=== PATIENT | female | born 1960 | race Caucasian/White ===

== ENCOUNTER 2018-07-04 15:11 | Outpatient (CLI) | payer MEDICARE ==
--- NOTE | 2018-07-04 18:14 | MRI ---
MRI OF RIGHT HIP WITHOUT CONTRAST: 07/04/18 HISTORY: Chronic right hip pain right groin. G89.29 other chronic pain. COMPARISON: None. FINDINGS: BONES: There are bilateral hip arthroplasties which create extensive susceptibility artifact. The right pseu docapsule is markedly distended and had a hemosiderin shell within it. Marked synovitis. Moderate adj acent soft tissue swelling. The distended pseudocapsule measures 6.3 x 0.8 x 9.5 cm (AP x trans x CC) . There is some mild muscle edema within the quadratus femoris as well as the gluteus medius and minimu s muscles on the right. No stress fracture is appreciated. Mild narrowing of the pubic symphysis. Moderate degeneration as expected for age. Intrapelvic soft ti ssues are unremarkable. IMPRESSION: 1. Adverse local tissue reaction around the right hip arthroplasty with a large distended pseudo capsule lined with hemosiderin withextensive synovitis and internal debris. 2. Mild edema within the right quadratus femoris as well as gluteus medius and minimus muscles. 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 POS: [facility]
== END 2018-07-04 15:12 | disposition home or self-care (01) ==
LOC: BICMRI 15:11
PROVIDERS: ATTEND Physician Assistant
DX: M25.551 Pain in right hip (principal); G89.29 Other chronic pain; Z98.890 Other specified postprocedural states

== ENCOUNTER 2020-08-09 10:36 | Outpatient (CLI) | payer MEDICARE ==
--- NOTE | 2020-08-09 12:06 | RAD ---
PA AND LATERAL VIEWS CHEST: Date: 08/09/2020 HISTORY: Wheezing, cough. COMPARISON: 12/29/2014. FINDINGS: The heart size is normal. The aorta is tortuous. The lungs are well expanded without lobar consolidat ion, pneumothoraces, or pleural effusions. There are postop changes and metallic hardware in the lowe r cervical spine. A hiatal hernia is present. IMPRESSION: No acute process. POS: [facility]
== END 2020-08-09 10:37 | disposition home or self-care (01) ==
LOC: BICRAD 10:36
PROVIDERS: ATTEND Internal Medicine
DX: R06.2 Wheezing (principal)
CPT/HCPCS: 71046

== ENCOUNTER 2020-08-11 20:14 | Emergency (ER) | payer MEDICARE ==
[~2020-08-11 20:14] MED LIST: Iopamidol-370 76% 500 ML 1 ML ONE
[2020-08-11] MEDS ORDERED: Lidocaine 1% w/Epinephrine 1:100K 20 ML VIAL ONE (21:19)
[2020-08-11] MEDS ORDERED: Morphine 4 MG/ML VIAL ONE (21:38)
[2020-08-11] MEDS ORDERED: Ondansetron PF 4 MG/2 ML Vial ONE (21:38)
[2020-08-11 21:47] LABS: #Eosinphils 0.1 thou/uL (0.0-0.7); #Monocytes 0.4 thou/uL (0.11-0.59); #Neutrophils 2.8 thou/uL (1.40-6.50); %Eosinophils 1.4 % (0.0-10.0); %Lymphocytes 24.2 % (21.0-51.0); %Monocytes 8.4 % (0.0-10.0); %Neutrophils 65.1 % (42.0-75.0); Hemoglobin 10.2 g/dL (12.0-16.0); Mean Corpuscular HGB CONC 32.9 g/dL (32.0-36.0); Mean Corpuscular Hemoglobin 29.5 pg (27.0-31.0); Mean Corpuscular Volume 89.7 fL (78.0-98.0); Mean Platelet Volume 7.8 fL (7.4-10.4); Platelet Count 103 thou/uL (130-400); Red Blood Cell (RBC) Count 3.45 mill/uL (4.20-5.40); White Blood Cell (WBC) Count 4.3 thou/uL (4.8-10.8)
[2020-08-11 22:10] LABS: ALT (SGPT) 26 U/L (8-55); AST (SGOT) 38 U/L (5-34); Albumin 3.7 g/dL (3.5-5.0); Alkaline Phosphatase 89 U/L (40-110); Anion Gap 15 mmol/L (10-20); BUN (Urea Nitrogen) 17 mg/dL (9.8-20.1); Bilirubin, Total 0.3 mg/dL (0.2-1.2); Calc. Creatinine Clearance 0 mL/min (70-130); Calcium 8.6 mg/dL (7.8-10.44); Carbon Dioxide 24 mmol/L (22-29); Chloride 107 mmol/L (98-107); Estimated GFR-MDRD 63; Globulin 3.1 g/dL (2.4-3.5); Glucose 112 mg/dL (70-105); Lipase 42 U/L (8-78); Potassium 3.8 mmol/L (3.5-5.1); Protein, Total 6.8 g/dL (6.0-8.3); Sodium 142 mmol/L (136-145)
[2020-08-11 22:51] LABS: Troponin I 0.024 ng/mL (< 0.028)
--- NOTE | 2020-08-12 07:49 | CT ---
CT OF THE ABDOMEN AND PELVIS WITH CONTRAST: HISTORY: Epigastric pain after swallowing an earring. TECHNIQUE: Multiple contiguous axial images were obtained in a CT of the abdomen and pelvis with contrast. Sagi ttal and coronal reformats were performed. FINDINGS: There is an earring in the patient's cecum. No distention of small bowel loops is seen. No free air or free fluid are seen in the abdomen or pelvis. There is a moderate hiatal hernia. The liver has a nodular contour consistent with cirrhosis. The gallbladder is absent. Mild enlargem ent of the biliary tree may be reservoir effect from prior cholecystectomy. The right kidney, adrena l glands, spleen, and pancreas are unremarkable. There are subcentimeter hypodensities in both kidn eys that are too small to definitely characterize but likely represent a cyst. Atherosclerotic calcifications are seen in the aorta. The patient has bilateral hip prostheses which produced streak artifact limiting evaluation of the pelvis. No abdominal adenopathy is seen. No ob vious pelvic adenopathy is appreciated. Degenerative changes are seen in the spine. The visualized inferior thorax and abdominal wall soft t issues are unremarkable. IMPRESSION: 1. The swallowed earring is in the cecum without evidence of obstruction or bowel perforation. 2. Renal cysts. 3. Hiatal hernia. 4. Cirrhotic liver. POS: [facility]
== END 2020-08-11 23:40 | disposition home or self-care (01) ==
LOC: ERS 20:14
DX: T18.9XXA Foreign body of alimentary tract, part unspecified, initial encounter (principal); R10.13 Epigastric pain; F17.210 Nicotine dependence, cigarettes, uncomplicated
CPT/HCPCS: 36415; 74177; 80053; 83690; 84484; 85025; 93005; 96374; 96375; J2270; J2405; Q9967

== ENCOUNTER 2020-08-26 16:45 | Outpatient (CLI) | payer MEDICARE ==
[2020-08-27 02:05] LABS: SARS-CoV-2 MS2 Positive; SARS-CoV-2 N Gene Negative; SARS-CoV-2 S Gene Negative; SARS-CoV-2 by NAA Not Detected (NotDetected); SARS-CoV-2 orf1ab Negative
== END 2020-08-26 16:46 | disposition home or self-care (01) ==
LOC: LABBT 16:45
PROVIDERS: ATTEND Internal Medicine Gastroenterology
DX: Z01.812 Encounter for preprocedural laboratory examination (principal); K92.2 Gastrointestinal hemorrhage, unspecified; R10.9 Unspecified abdominal pain; Z20.828 Contact with and (suspected) exposure to other viral communicable diseases
CPT/HCPCS: 87635; U0003

== ENCOUNTER 2024-09-24 16:14 | Inpatient (IN) | payer OTHER, MEDICAID ==
[2024-09-24 16:33] VITALS: BMI 23.1
[2024-09-24] MEDS ORDERED: Calcium Carbonate 500 MG ChewTAB PO PRN (17:50)
[2024-09-24] MEDS ORDERED: Senokot S 8.6-50 MG TAB PO PRN (17:50)
[2024-09-24] MEDS ORDERED: Benzocaine/Menthol 1 LOZ LOZ PO PRN (18:16)
[2024-09-24] MEDS: Sodium Chloride 0.9% 1,000 ML IV SCH (18:19)
[2024-09-24] MEDS: Morphine 2 MG/ML VIAL SLOW IVP PRN (18:19)
[2024-09-24] MEDS: Ondansetron PF 4 MG/2 ML Vial IVP PRN (18:20)
[2024-09-24 18:57] LABS: Troponin I 0.097 ng/mL (< 0.028)
[2024-09-24 20:05] LABS: Influenza A by NAA Not Detected (NotDetected); Influenza B by NAA Not Detected (NotDetected); RSV by NAA Not Detected (NotDetected); SARS-CoV-2 NAA Rapid Test Not Detected (NotDetected)
[2024-09-24] MEDS: Sucralfate 1 GM TAB PO SCH (20:08)
[2024-09-24] MEDS: Metoprolol Tartrate 25 MG TAB PO SCH (20:09)
[2024-09-24] MEDS: Pantoprazole 40 MG VIAL IVP SCH (20:09)
[2024-09-24] MEDS: Zolpidem Tartrate 5 MG TAB PO PRN (23:27)
[2024-09-25 00:27] LABS: Bacteria/HPF 3+ HPF (None Seen); Bilirubin Negative (Negative); Blood, Urine 1+ (Negative); Clarity Extra Turbid (Clear); Glucose, Urine (Dipstick) Normal (Negative); Ketone, Urine Negative (Negative); Leukocyte 500 Leu/uL (Negative); Nitrite Negative (Negative); Protein, Urine (Dipstick) 30 mg/dL (Neg-Trace); RBC/HPF 21-50 HPF (0-3); Transitional Epithelial 0-3 HPF (None Seen); WBC/HPF Greater than 50 HPF (0-3); pH, Urine 5.5 (5.0-9.0)
[2024-09-25 00:30] LABS: Amphetamine Not Detected (NotDetected); Barbiturates Screen Not Detected (NotDetected); Benzodiazepine Screen Not Detected (NotDetected); Cocaine Metabolite Screen Detected (NotDetected); Methadone Not Detected (NotDetected); Methamphetamine Detected (NotDetected); Opiate Screen Detected (NotDetected); Oxycodone Screen Not Detected (NotDetected); Phencyclidine (PCP) Not Detected (NotDetected); Specific Gravity, Urine 1.059 (1.002-1.036); THC/Cannabinoid Screen Not Detected (NotDetected); Tricyclic Screen Not Detected (NotDetected)
[2024-09-25] MEDS: cefTRIAXone\\ROCEPHIN 1 GM in Sodium Chloride 0.9% 100 ML IVPB SCH (04:52)
[2024-09-25 05:32] LABS: ALT (SGPT) 77 U/L (8-55); AST (SGOT) 127 U/L (5-34); Albumin 2.8 g/dL (3.4-4.8); Alkaline Phosphatase 80 U/L (40-110); Anion Gap 11 mmol/L (10-20); BUN (Urea Nitrogen) 34 mg/dL (9.8-20.1); Calc. Creatinine Clearance 33 mL/min (70-130); Calcium 7.8 mg/dL (7.8-10.44); Carbon Dioxide 22 mmol/L (23-31); Chloride 105 mmol/L (98-107); Estimated GFR 29; Globulin 3.1 g/dL (2.4-3.5); Glucose 92 mg/dL (80-115); Magnesium 1.6 mg/dL (1.6-2.6); Potassium 3.8 mmol/L (3.5-5.1); Protein, Total 5.9 g/dL (5.8-8.1); Sodium 134 mmol/L (136-145)
[2024-09-25 05:35] LABS: Troponin I 0.075 ng/mL (< 0.028)
[2024-09-25 07:31] LABS: Anisocytosis SLIGHT = 6-15 cells HPF (0-5); Macrocytosis SLIGHT = 6-15 cells HPF (0-5); Platelet Adequacy Comment Platelets Decreased
[2024-09-25 07:38] LABS: #Basophils 0.05 10x3/uL (0.0-0.2); %Basophils 0.7 % (0.0-1.0); %Eosinophils 1.4 % (0.0-10.0); %Lymphocytes 22.2 % (21.0-51.0); %Monocytes 9.6 % (0.0-10.0); %Neutrophils 65.6 % (42.0-75.0); Hematocrit 35.5 % (36.0-47.0); Hemoglobin 12.1 g/dL (12.0-16.0); Mean Corpuscular HGB CONC 34.1 g/dL (32.0-36.0); Mean Corpuscular Volume 93.8 fL (78.0-98.0); Mean Platelet Volume 11.2 fL (7.4-10.4); Platelet Count 106 10x3/uL (130-400); RBC Distribution Width 12.1 % (11.5-14.5); Red Blood Cell (RBC) Count 3.88 mill/uL (4.20-5.40)
[2024-09-25] MEDS: traMADol HCl 50 MG TAB PO PRN (08:30)
[2024-09-25] MEDS: Enoxaparin 40 MG (0.4 mL) SYRINGE SC SCH (08:30)
[2024-09-25] MEDS: Ketorolac Tromethamine 30 MG (1 mL) VIAL IVP PRN (18:13)
[2024-09-25] MEDS: Acetaminophen 325 MG TAB PO PRN (20:24)
[2024-09-26] MEDS: Morphine 2 MG/ML VIAL SLOW IVP PRN (01:26)
[2024-09-26 05:21] LABS: #Basophils Less than 0.03 10x3/uL (0.0-0.2); %Basophils 0.5 % (0.0-1.0); %Lymphocytes 32.3 % (21.0-51.0); %Monocytes 10.7 % (0.0-10.0); Hematocrit 34.2 % (36.0-47.0); Hemoglobin 11.3 g/dL (12.0-16.0); Mean Corpuscular Hemoglobin 32.3 pg (27.0-31.0); Mean Corpuscular Volume 97.7 fL (78.0-98.0); Mean Platelet Volume 10.8 fL (7.4-10.4); Platelet Count 88 10x3/uL (130-400); RBC Distribution Width 12.2 % (11.5-14.5)
[2024-09-26 05:22] LABS: INR-International Normal Ratio 1.1; Prothrombin Time 13.8 sec (12.0-14.7)
[2024-09-26 05:30] LABS: ALT (SGPT) 49 U/L (8-55); AST (SGOT) 59 U/L (5-34); Albumin 2.6 g/dL (3.4-4.8); Alkaline Phosphatase 73 U/L (40-110); Anion Gap 9 mmol/L (10-20); BUN (Urea Nitrogen) 22 mg/dL (9.8-20.1); Bilirubin, Total 0.3 mg/dL (0.2-1.2); Calc. Creatinine Clearance 61 mL/min (70-130); Calcium 7.9 mg/dL (7.8-10.44); Carbon Dioxide 18 mmol/L (23-31); Chloride 111 mmol/L (98-107); Estimated GFR 61; Glucose 116 mg/dL (80-115); Potassium 3.8 mmol/L (3.5-5.1); Protein, Total 5.6 g/dL (5.8-8.1); Sodium 134 mmol/L (136-145)
[2024-09-26] MEDS ORDERED: Ketorolac Tromethamine 30 MG (1 mL) VIAL IVP PRN (13:54)
[2024-09-26] MEDS: guaiFENesin/DM ER PO SCH ×2 (15:39→20:12)
[2024-09-26] MEDS: Sodium Chloride 0.9% 1,000 ML IV SCH (15:44)
[2024-09-27 05:07] LABS: #Basophils Less than 0.03 10x3/uL (0.0-0.2); %Basophils 0.2 % (0.0-1.0); %Eosinophils 1.4 % (0.0-10.0); %Lymphocytes 15.1 % (21.0-51.0); %Monocytes 5.4 % (0.0-10.0); %Neutrophils 77.3 % (42.0-75.0); Hematocrit 32.8 % (36.0-47.0); Hemoglobin 11.2 g/dL (12.0-16.0); Mean Corpuscular HGB CONC 34.1 g/dL (32.0-36.0); Mean Corpuscular Hemoglobin 32.7 pg (27.0-31.0); Mean Corpuscular Volume 95.6 fL (78.0-98.0); Mean Platelet Volume 11.4 fL (7.4-10.4); Platelet Count 82 10x3/uL (130-400); RBC Distribution Width 12.2 % (11.5-14.5); Red Blood Cell (RBC) Count 3.43 mill/uL (4.20-5.40)
[2024-09-27 05:13] LABS: ALT (SGPT) 37 U/L (8-55); AST (SGOT) 38 U/L (5-34); Albumin 2.5 g/dL (3.4-4.8); Alkaline Phosphatase 65 U/L (40-110); Anion Gap 8 mmol/L (10-20); BUN (Urea Nitrogen) 11 mg/dL (9.8-20.1); Bilirubin, Total 0.4 mg/dL (0.2-1.2); Calc. Creatinine Clearance 79 mL/min (70-130); Carbon Dioxide 19 mmol/L (23-31); Chloride 113 mmol/L (98-107); Estimated GFR 81; Glucose 93 mg/dL (80-115); Potassium 4.2 mmol/L (3.5-5.1); Protein, Total 5.5 g/dL (5.8-8.1); Sodium 136 mmol/L (136-145)
[2024-09-27] MEDS: Metoprolol Tartrate 25 MG TAB PO SCH (08:22)
[2024-09-27] MEDS ORDERED: Lidocaine 1% PF 5 ML VIAL ONE (09:00)
[2024-09-27] MEDS ORDERED: Rocuronium Bromide 10 MG/ML (10ML VIAL) ONE (09:00)
[2024-09-27] MEDS ORDERED: PROPOFOL 20 ML ONE (09:00)
[2024-09-27] MEDS ORDERED: fentaNYL 50 mcg/mL 1 mL Vial ONE ×2 (09:00→10:09)
[2024-09-27] MEDS ORDERED: Indomethacin 50 MG SUPP ONE (09:00)
[2024-09-27] MEDS ORDERED: Iopamidol 30 ML ONE (09:02)
[2024-09-27] MEDS ORDERED: Etomidate 40 MG (20 mL) VIAL ONE (09:15)
[2024-09-27] MEDS ORDERED: SUGAMMADEX SODIUM 200 MG/2 ML VIAL ONE (09:47)
[2024-09-27] MEDS ORDERED: Ondansetron PF 4 MG/2 ML Vial ONE (09:49)
[2024-09-27] MEDS ORDERED: Milk Of Magnesia 30 ML UDCUP PO PRN (16:16)
[2024-09-28 05:18] LABS: #Basophils Less than 0.03 10x3/uL (0.0-0.2); %Basophils 0.4 % (0.0-1.0); %Eosinophils 3.3 % (0.0-10.0); %Lymphocytes 22.6 % (21.0-51.0); %Monocytes 8.9 % (0.0-10.0); %Neutrophils 64.4 % (42.0-75.0); Hematocrit 37.8 % (36.0-47.0); Hemoglobin 12.4 g/dL (12.0-16.0); Mean Corpuscular HGB CONC 32.8 g/dL (32.0-36.0); Mean Corpuscular Hemoglobin 32.5 pg (27.0-31.0); Mean Platelet Volume 11.1 fL (7.4-10.4); Platelet Count 75 10x3/uL (130-400); RBC Distribution Width 12.4 % (11.5-14.5); Red Blood Cell (RBC) Count 3.82 mill/uL (4.20-5.40)
[2024-09-28 05:41] LABS: ALT (SGPT) 101 U/L (8-55); AST (SGOT) 174 U/L (5-34); Albumin 2.7 g/dL (3.4-4.8); Alkaline Phosphatase 120 U/L (40-110); Anion Gap 12 mmol/L (10-20); BUN (Urea Nitrogen) 9 mg/dL (9.8-20.1); Bilirubin, Total 0.4 mg/dL (0.2-1.2); Carbon Dioxide 16 mmol/L (23-31); Chloride 114 mmol/L (98-107); Globulin 3.4 g/dL (2.4-3.5); Glucose 145 mg/dL (80-115); Potassium 4.6 mmol/L (3.5-5.1); Protein, Total 6.1 g/dL (5.8-8.1); Sodium 137 mmol/L (136-145)
[2024-09-28 07:54] LABS: Calc. Creatinine Clearance 82 mL/min (70-130); Estimated GFR 85
[2024-09-28] MEDS: Pantoprazole 40 MG DR.TAB PO SCH (08:05)
[2024-09-28 14:57] VITALS: BP 154/76; TEMP 98
[2024-09-30 08:37] LABS: HCV RNA, log10 6.792 (.); Hep C PCR-Quant 6200000 IU/mL (.)
== END 2024-09-28 15:25 | disposition home or self-care (01) | DRG 444 ==
LOC: OBS 16:30 → OBSVTOIN 17:50 → T4-A 09-27 15:29
PROVIDERS: ADMIT Internal Medicine; ATTEND Internal Medicine
PROC: 0FC98ZZ Extirpation of Matter from Common Bile Duct, Via Natural or Artificial Opening Endoscopic (ICD-10-PCS; principal; 2024-09-27)
PROC: BF131ZZ Fluoroscopy of Gallbladder and Bile Ducts using Low Osmolar Contrast (ICD-10-PCS; 2024-09-27)
DX: K80.50 Calculus of bile duct without cholangitis or cholecystitis without obstruction (principal); I21.A1 Myocardial infarction type 2; N17.9 Acute kidney failure, unspecified; N39.0 Urinary tract infection, site not specified; K20.90 Esophagitis, unspecified without bleeding; K21.9 Gastro-esophageal reflux disease without esophagitis; F19.10 Other psychoactive substance abuse, uncomplicated; K74.60 Unspecified cirrhosis of liver; F31.9 Bipolar disorder, unspecified; Z96.643 Presence of artificial hip joint, bilateral; E86.0 Dehydration; F17.210 Nicotine dependence, cigarettes, uncomplicated; Z90.49 Acquired absence of other specified parts of digestive tract; Z90.710 Acquired absence of both cervix and uterus; Z90.89 Acquired absence of other organs
CPT/HCPCS: 0241U; 36415; 74181; 74330; 80053; 80306; 81001; 83735; 84484; 85025; 85610; 87077; 87086; 87186; 87522; C1725; J0696; J1650; J1885; J2272; J2405; J2470; J2704; J3010; Q9967